=== PATIENT | female | born 1995 | race Hispanic/Latino ===

== ENCOUNTER 2016-11-29 09:07 | Emergency (ER) | payer OTHER ==
[~2016-11-29] VITALS: Ht 172.7 cm; Wt 119.2 kg
[~2016-11-29 09:07] MED LIST: BACTRIM,SEPT1 TABLET PO; BACTROBAN OINTM22 GM TP; KEFLEX500 MG PO; MOTRIN600 MG PO; ULTRACET1 TABLET PO
[2016-11-29] MEDS ORDERED: BACTRIM,SEPT1 TABLET PO (10:35)
[2016-11-29 11:41] VITALS: BP 120/74
== END 2016-11-29 11:42 | disposition home or self-care (01) ==
LOC: EME 09:07
PROC: 0U9MXZZ Drainage of Vulva, External Approach (ICD-10-PCS; principal; 2016-11-29)
DX: N76.4 Abscess of vulva (principal)
CPT/HCPCS: 99281; 99284

== ENCOUNTER 2017-02-22 19:56 | Emergency (ER) | payer OTHER ==
[~2017-02-22] VITALS: Ht 170.2 cm; Wt 115.6 kg
[2017-02-22 20:17] LABS: HEMATOCRIT 43.4 % (36.0-46.0); HEMOGLOBIN 14.3 G/DL (11.9-15.5); MCH 26.5 PG (29.0-34.0); MCHC 32.9 G/DL (30.0-36.0); MCV 80.5 FL (83-99); PLATELET COUNT 375 K/uL (156-360); RBC DIS.WIDTH-CV 14.1 % (11.8-14.6); RBC DIS.WIDTH-SD 40.7 % (39-53); RED BLOOD COUNT 5.39 M/uL (3.80-5.20); WHITE BLOOD COUNT 16.7 K/uL (4.1-10.2)
[2017-02-22 20:25] LABS: ALBUMIN 4.1 g/dL (3.2-4.8)
[2017-02-22 20:26] LABS: CHLORIDE 105 mEq/L (99-109); POTASSIUM 3.7 mEq/L (3.7-5.4); SODIUM 137 mEq/L (136-147)
[2017-02-22 20:28] LABS: GLUCOSE 102 mg/dL (70-99); TOTAL PROTEIN 8.1 g/dL (6.4-8.3)
[2017-02-22 20:30] LABS: TOTAL BILIRUBIN 0.8 mg/dL (0.0-1.0)
[2017-02-22 20:31] LABS: ALKALINE PHOSPHATASE 60 IU/L (3-129)
[2017-02-22 20:32] LABS: GFR ESTIMATE (CALCULATED) > 59 mL/min/
[2017-02-22 20:33] LABS: AST (GOT) 18 IU/L (2-34); UREA NITROGEN (BUN) 17 mg/dL (9-23)
[2017-02-22 20:35] LABS: ALT (GPT) 19 IU/L (3-49); LIPASE 13 U/L (1.0-51.0)
[2017-02-22 20:41] LABS: QUANTITATIVE HCG < 4.0 MIU/ML
[2017-02-22 21:33] LABS: APPEARANCE SL.HAZY ((CLEAR)); BILIRUBIN NEGATIVE; BLOOD MODERATE; COLOR AMBER ((YELLOW)); GLUCOSE (STRIP) NEGATIVE; KETONES NEGATIVE; LEUKOCYTES TRACE; NITRITE NEGATIVE; PROTEIN (STRIP) 30; SPECIFIC GRAVITY 1.039 (1.000-1.030); UROBILINOGEN 0.2 MG/DL (0.2-1.0)
[2017-02-22 21:58] LABS: BACTERIA RARE /HPF; EPITHELIAL CELLS 2+ /HPF; MUCUS 3+ /LPF; RED BLOOD CELLS 0-5 /HPF (0-5); UCUL ADDED? NO; WHITE BLOOD CELLS 0-5 /HPF (0-5)
[2017-02-23] MEDS ORDERED: ZOFRAN ODT4 MG PO (00:44)
[2017-02-23] MEDS ORDERED: PERCOCET 5/31 TABLET PO (00:44)
[2017-02-23] MEDS ORDERED: CIPRO500 MG PO (00:44)
[2017-02-23] MEDS ORDERED: FLAGYL500 MG PO (00:44)
[2017-02-23 01:10] VITALS: BP 124/67
== END 2017-02-23 01:25 | disposition home or self-care (01) ==
LOC: EME 19:56
DX: K52.9 Noninfective gastroenteritis and colitis, unspecified (principal); R10.32 Left lower quadrant pain
CPT/HCPCS: 74177; 80053; 81003; 83690; 84702; 85027; 99281; 99285; J2270; J2405; J7030